=== PATIENT | male | born 1985 | race Caucasian/White ===

== ENCOUNTER 2022-11-18 08:56 | Outpatient (REF) | payer OTHER, SELFPAY ==
[2022-11-18 14:41] LABS: Anion Gap 6.2 mmol/L (3-11); BUN 14 mg/dL (7-18); CO2 30.8 mmol/L (21.0-32.0); CREATININE 0.9 mg/dL (0.70-1.30); Calcium 9.6 mg/dL (8.5-10.1); Calculated LDL 119 mg/dL (<100); Chloride 105 mmol/L (98-107); Cholesterol 190 mg/dL (<200); Estimated GFR 111.42 (mL/min/1.73m2); Glucose 89 mg/dL (74-106); HDL Cholesterol 62 mg/dL (40-60); Potassium 3.9 mmol/L (3.5-5.1); Sodium 142 mmol/L (136-145); Triglyceride 45 mg/dL (<150)
[2022-11-19 11:00] LABS: Hepatitis C Ab w Rflx HCV PCR Negative (Negative)
== END 2022-11-18 08:57 | disposition home or self-care (01) ==
LOC: NCHCN 08:56
PROVIDERS: Visit Provider Registered Nurse
DX: Z00.00 Encounter for general adult medical examination without abnormal findings (principal); Z13.228 Encounter for screening for other metabolic disorders; Z11.59 Encounter for screening for other viral diseases; Z13.220 Encounter for screening for lipoid disorders
CPT/HCPCS: 80048; 80061; 86803

== ENCOUNTER 2024-02-23 08:27 | Outpatient (REF) | payer OTHER, SELFPAY ==
[2024-02-23 15:42] LABS: Abs Immature Grans 0.01 10^3/uL (0.0-0.06); Absolute Basophil Count 0.02 10^3/uL (0.0-0.2); Absolute Eosinophil Count 0.08 10^3/uL (0.0-0.7); Absolute Lymphocyte Count 1.31 10^3/uL (1.2-3.4); Absolute Monocyte Count 0.37 10^3/uL (0.1-0.8); Absolute Neutrophil Count 2.79 10^3/uL (1.2-6.7); Basophils % 0.4; Eosinophils % 1.7; HGB 16.1 g/dL (13.5-17.5); Immature Grans % 0.2; Lymphocytes % 28.6; MCH 31.7 pg (27.0-33.0); MCHC 35.8 % (32.0-36.0); MCV 89 fL (80-95); MPV 9.8 fL (8.0-11.0); Monocytes % 8.1; Platelet Count 188 10^3/uL (130-400); RBC 5.08 10^6/uL (4.36-5.78); RDW 11.8 % (11.8-14.1); RDW-SD 38.2 fL; WBC 4.58 10^3/uL (4.4-10.8)
[2024-02-23 16:04] LABS: ALT 30 U/L (16-63); AST 27 U/L (15-37); Albumin 4.6 g/dL (3.4-5.0); Alkaline Phosphatase 76 U/L (46-116); Anion Gap 7.9 mmol/L (3-11); BUN 13 mg/dL (7-18); Bilirubin, Total 0.8 mg/dL (0.2-1.0); CO2 30.1 mmol/L (21.0-32.0); CREATININE 0.8 mg/dL (0.70-1.30); Calcium 9.4 mg/dL (8.5-10.1); Chloride 106 mmol/L (98-107); Estimated GFR 114.74 (mL/min/1.73m2); Glucose 88 mg/dL (74-106); Lipase 64 U/L (16-77); Potassium 4.1 mmol/L (3.5-5.1); Sodium 144 mmol/L (136-145); Total Protein 7.2 g/dL (6.4-8.2)
== END 2024-02-23 08:28 | disposition home or self-care (01) ==
LOC: NCHCN 08:27
PROVIDERS: Visit Provider Family Medicine
DX: R10.9 Unspecified abdominal pain (principal)
CPT/HCPCS: 80053; 83690; 85025

== ENCOUNTER 2024-12-01 19:07 | Outpatient (REF) | payer OTHER, SELFPAY ==
[2024-12-01 14:25] LABS: HCT 45.5 % (40.0-50.0); HGB 16.2 g/dL (13.5-17.5); MCH 31.8 pg (27.0-33.0); MCHC 35.6 % (32.0-36.0); MCV 89 fL (80-95); MPV 9.3 fL (8.0-11.0); Platelet Count 139 10^3/uL (130-400); RDW 11.8 % (11.8-14.1); RDW-SD 37.9 fL; WBC 3.77 10^3/uL (4.4-10.8)
== END 2024-12-01 19:08 | disposition home or self-care (01) ==
LOC: NCHCN 19:07
PROVIDERS: PCP Family Medicine; Visit Provider Family Medicine
DX: Z83.49 Family history of other endocrine, nutritional and metabolic diseases (principal); Z13.29 Encounter for screening for other suspected endocrine disorder
CPT/HCPCS: 85027

== ENCOUNTER 2025-06-01 13:22 | Outpatient (REF) | payer OTHER, SELFPAY ==
[2025-06-03 10:29] LABS: Campylobacter PCR Negative (Negative); Shiga Toxin PCR Negative (Negative); Shigella/Enteroinvasive Ecoli Negative (Negative)
== END 2025-06-01 13:23 | disposition home or self-care (01) ==
LOC: NCHCN 13:22
PROVIDERS: PCP Family Medicine; Visit Provider Family Medicine
DX: R19.7 Diarrhea, unspecified (principal)
CPT/HCPCS: 87505

== ENCOUNTER 2025-06-11 20:02 | Outpatient (REF) | payer OTHER, SELFPAY | END 2025-06-11 20:03 | disposition home or self-care (01) | LOC: NCHCN 20:02 | PROVIDERS: PCP Family Medicine; Visit Provider Nurse Practitioner Family | DX: R19.7 Diarrhea, unspecified (principal) | CPT/HCPCS: 87015; 87269; 87272 ==

== ENCOUNTER 2025-06-12 12:30 | Outpatient (REF) | payer OTHER, SELFPAY ==
[2025-06-12 15:20] LABS: Anion Gap 8.7 mmol/L (3-11); BUN 16 mg/dL (7-18); CO2 28.3 mmol/L (21.0-32.0); Calcium 9.5 mg/dL (8.5-10.1); Chloride 106 mmol/L (98-107); Estimated GFR 117.98 (mL/min/1.73m2); Glucose 79 mg/dL (74-106); Potassium 3.8 mmol/L (3.5-5.1); Sodium 143 mmol/L (136-145)
== END 2025-06-12 12:31 | disposition home or self-care (01) ==
LOC: NCHCN 12:30
PROVIDERS: PCP Family Medicine; Visit Provider Family Medicine
DX: K52.9 Noninfective gastroenteritis and colitis, unspecified (principal)
CPT/HCPCS: 80048; 82784; 83516